=== PATIENT | male | born 1965 | race Caucasian/White ===

== ENCOUNTER 2019-02-22 09:59 | Emergency (ER) | payer BC ==
[~2019-02-22] VITALS: Ht 182.9 cm; Wt 143.6 kg
[2019-02-22 10:38] LABS: HEMATOCRIT 44.3 % (39.0-50.0); HEMOGLOBIN 15.1 g/dl (14.0-18.0); IMMATURE GRANULOCYTES 0.3 % (0.0-5.0); MEAN CELL VOLUME 96.1 fL CALC (80.0-100.0); MEAN CORPUSCULAR HGB 32.8 pG CALC (26.0-32.0); MEAN CORPUSCULAR HGB CONC 34.1 g/L CALC (32.0-36.0); NEUT# 3.72 thou/uL (1.82-7.42); RED BLOOD COUNT 4.61 mill/uL (4.70-6.10); RED CELL DISTRI WIDTH 11.9 % (11.5-15.5)
[2019-02-22 10:48] LABS: ALBUMIN 4.6 g/dL (3.2-5.0); ALKALINE PHOSPHATASE 72 u/l (38-126); ANION GAP 14 (6-22 (CALC)); BILIRUBIN, TOTAL 0.7 mg/dL (0.0-1.4); BUN 15 mg/dL (9-20); BUN/CREATININE RATIO 15 (12-20 (CALC)); CARBON DIOXIDE 28 mmol/l (22-30); CHLORIDE 102 mmol/l (95-108); GFR > 60 ML/MIN (>=60 (CALC)); GFR FOR AFR.AMER. > 60 ML/MIN (>=60 (CALC)); POTASSIUM 4.8 mmol/l (3.5-5.1); SGOT/AST 42 u/l (17-59); SODIUM 138 mmol/l (137-146); TOTAL PROTEIN 7.6 g/dL (6.3-8.2)
[2019-02-22 11:00] LABS: MYOGLOBIN 35 ng/mL (0 - 121)
[2019-02-22] MEDS ORDERED: LOPRESSOR50 M2 PO (11:02)
[2019-02-22] MEDS ORDERED: TRAZODONE100 MG PO (11:03)
[2019-02-22] MEDS ORDERED: BUSPAR5 M1 PO (11:05)
[2019-02-22 12:44] LABS: URINE BILIRUBIN - DIPSTICK NEGATIVE (NEGATIVE); URINE BLOOD DIPSTICK NEGATIVE (NEGATIVE); URINE COLOR YELLOW; URINE GLUCOSE - DIPSTICK NEGATIVE (NEGATIVE); URINE KETONE NEGATIVE (NEGATIVE); URINE LEUK ESTERASE NEGATIVE (NEGATIVE); URINE NITRITE - DIPSTICK NEGATIVE (Negative); URINE PROTEIN - DIPSTICK NEGATIVE (NEG-TRACE); URINE UROBILINOGEN - DIPSTICK 0.2 E.U./dL (0.2)
[2019-02-22] MEDS ORDERED: LISINOPRIL10 MG PO (13:51)
[2019-02-22] MEDS ORDERED: AMOXICILLIN500 MG PO (13:51)
[2019-02-22 14:00] VITALS: BP 140/74
== END 2019-02-22 14:30 | disposition left against medical advice (07) | DRG 310 ==
LOC: ED 09:59
PROVIDERS: Emergency Medicine
DX: R00.1 Bradycardia, unspecified (principal); J02.0 Streptococcal pharyngitis; Z91.19 Patient's noncompliance with other medical treatment and regimen; R09.81 Nasal congestion